=== PATIENT | male | born 1930 | race Caucasian/White ===

== ENCOUNTER 2017-11-20 13:40 | Emergency (ER) | payer OTHER ==
[~2017-11-20] VITALS: Ht 182.9 cm; Wt 79.4 kg
[2017-11-20 14:14] LABS: BASOPHILS % 0.2 % (0.0-1.0); EOSINOPHILS % 0.2 % (0.0-6.0); HEMATOCRIT 48.9 % (38.2-49.6); HEMOGLOBIN 16.5 g/dL (14.0-18.0); LYMPHOCYTES # (AUTO) 1.1 (1.0-3.2); LYMPHOCYTES % 9.1 % (18.0-39.1); MEAN CORPUSCULAR HEMOGLOBIN 32.5 pg (28-32); MEAN CORPUSCULAR HGB CONC 33.7 g/dL (31-35); MEAN CORPUSCULAR VOLUME 96.4 fL (81-99); MONOCYTES # (AUTO) 1.4 (0.2-0.8); MONOCYTES % 11.6 % (4.4-11.3); NEUTROPHILS # (AUTO) 9.7 (2.1-6.9); NEUTROPHILS % 78.5 % (38.7-80.0); PLATELET COUNT 239 x10e3/uL (140-360); RED BLOOD COUNT 5.07 x10e6/uL (4.3-5.7); RED CELL DISTRIBUTION WIDTH 13.4 % (11.7-14.4)
[2017-11-20] MEDS ORDERED: ENOXAPARIN SODIUM INJ 100 MG/ML SYR SC STA (14:18)
[2017-11-20 14:26] LABS: INR 1.06; PROTHROMBIN TIME 14.3 seconds (11.9-14.5)
[2017-11-20] MEDS: SODIUM CHLORIDE 0.9% 500ML 500 ML IV STA (14:26)
[2017-11-20 14:27] LABS: PARTIAL THROMBOPLASTIN TIME 26.4 seconds (23.8-35.5)
[2017-11-20 14:38] LABS: ALBUMIN 4.4 g/dL (3.5-5.0); ALBUMIN/GLOBULIN RATIO 1.3 (0.8-2.0); ANION GAP 16.5 mmol/L (8-16); CALCIUM 9.5 mg/dL (8.4-10.2); CREATININE, SERUM 2.09 mg/dL (0.72-1.25); POTASSIUM 4.5 mmol/L (3.5-5.1)
[2017-11-20 14:46] LABS: CREATINE KINASE MB 35.4 ng/mL (0.00-5.00)
[2017-11-20 14:54] LABS: TROPONIN I 4.493 ng/mL (0-0.300)
--- NOTE | 2017-11-20 15:03 | Diagnostic Imaging Report ---
ADDENDUM #1 Findings were discussed with Dr. Greco at 2:58 PM on 11/20/2017. Signed by: Dr. Nito Nelson M.D. on 11/20/2017 3:34 PM ORIGINAL REPORT Exam: Head CT without contrast History: Fall, altered mental status Comparison studies: None Technique: Axial images were obtained from the skull base to the vertex. Coronal and sagittal images reconstructed from the axial data. Intravenous contrast: None Findings: Scalp: No abnormalities. Bones: No fractures, blastic or lytic lesions. Brain volume: Moderate generalized volume loss with slightly greater disproportionate volume loss along the anteromedial temporal lobes and hippocampi. Ventricles: Left lateral ventricle and third ventricle are partially effaced. No acute hydrocephalus. Extra-axial spaces: A large left hemispheric subacute subdural hematoma measures up to 2.3 cm in max thickness. Regional mass effect results in 8mm midline shift from left to right and mild subfalcine herniation. No uncal or transtentorial herniation. No acute hemorrhage. Parenchyma: No mass, acute hemorrhage or acute cortical vascular insults. A few scattered subtle hypodensities in the supratentorial white matter are nonspecific but most compatible with chronic small vessel ischemic changes. Sellar/suprasellar region: No abnormalities. Craniocervical junction: Patent foramen magnum. No Chiari one malformation. Incidental findings: Atherosclerotic calcifications in the carotid siphons and intradural vertebral arteries. IMPRESSION: 1. Large (2.3 cm thick) left hemispheric subacute subdural hematoma results in 0.8 cm midline shift from left to right and mild subfalcine herniation. No transtentorial herniation. 2. No other acute abnormalities or other changes when compared to the previous brain MRI of 12/11/2010 when allowing for differences in technique. 3. Mild chronic microvascular ischemic changes. 4. Generalized volume loss with slightly greater volume loss along the anteromedial temporal lobes and hippocampi which can be seen with Alzheimer's dementia in appropriate clinical setting. Signed by: Dr. Nito Nelson M.D. on 11/20/2017 2:59 PM
[2017-11-20] MEDS: TETANUS/DIPHTHERIA TOX ADULT 0.5 ML SYR IM ONE (15:11)
--- NOTE | 2017-11-20 15:52 | Diagnostic Imaging Report ---
EXAMINATION: CHEST SINGLE (PORTABLE) INDICATION: Fall \S\ERMD ORDER \S\[id number] \S\[id number] \S\Y COMPARISON: None FINDINGS: AP view TUBES and LINES: None. LUNGS: Lungs are well inflated. Lungs are clear. There is no evidence of pneumonia or pulmonary edema. PLEURA: No pleural effusion or pneumothorax. HEART AND MEDIASTINUM: The cardiac silhouette is borderline in size. BONES AND SOFT TISSUES: No acute osseous lesion. Soft tissues are unremarkable. UPPER ABDOMEN: No free air under the diaphragm. IMPRESSION: No acute thoracic abnormality. Signed by: Dr. Jack Jules MD on 11/20/2017 3:48 PM
== END 2017-11-20 15:53 | disposition short-term general hospital (02) ==
LOC: ER 13:40
DX: S06.370A Contusion, laceration, and hemorrhage of cerebellum without loss of consciousness, initial encounter (principal); I21.3 ST elevation (STEMI) myocardial infarction of unspecified site; I48.91 Unspecified atrial fibrillation; S00.01XA Abrasion of scalp, initial encounter; Z23 Encounter for immunization; W18.12XA Fall from or off toilet with subsequent striking against object, initial encounter; Z91.81 History of falling; Y92.012 Bathroom of single-family (private) house as the place of occurrence of the external cause
CPT/HCPCS: 36415; 70450; 71010; 80053; 82550; 82553; 83605; 83880; 84484; 85025; 85610; 85730; 87400; 90471; 90714; 93005; 99284; J7040